=== PATIENT | female | born 1950 | race Caucasian/White ===

== ENCOUNTER 2017-11-09 12:30 | Emergency (ER) | payer MEDICARE ==
[2017-11-09 14:14] LABS: #Basophils 0.1 thou/uL (0.0-0.2); #Eosinphils 0.4 thou/uL (0.0-0.7); #Lymphocytes 2.6 thou/uL (1.20-3.40); #Monocytes 0.8 thou/uL (0.11-0.59); #Neutrophils 7.3 thou/uL (1.40-6.50); %Basophils 0.5 % (0.0-1.0); %Eosinophils 3.8 % (0.0-10.0); %Monocytes 7.1 % (0.0-10.0); Hematocrit 42.3 % (36.0-47.0); Mean Platelet Volume 6.8 fL (7.4-10.4); White Blood Cell (WBC) Count 11.2 thou/uL (4.8-10.8)
[2017-11-09 14:30] LABS: Anion Gap 13 mmol/L (10-20); BUN (Urea Nitrogen) 14 mg/dL (9.8-20.1); Calc. Creatinine Clearance 0 mL/min (70-130); Calcium 9.2 mg/dL (7.8-10.44); Carbon Dioxide 24 mmol/L (23-31); Chloride 107 mmol/L (98-107); Estimated GFR-MDRD 59
== END 2017-11-09 14:22 | disposition home or self-care (01) ==
LOC: ERS 12:30
DX: B34.9 Viral infection, unspecified (principal); E03.9 Hypothyroidism, unspecified; E78.5 Hyperlipidemia, unspecified; I11.0 Hypertensive heart disease with heart failure; I50.9 Heart failure, unspecified; G47.30 Sleep apnea, unspecified; F32.9 Major depressive disorder, single episode, unspecified; Z79.82 Long term (current) use of aspirin; Z79.899 Other long term (current) drug therapy
CPT/HCPCS: 80048; 85025; 85652; 99283